=== PATIENT | female | born 1980 | race Hispanic/Latino ===

== ENCOUNTER 2020-08-07 20:29 | Emergency (ER) | payer OTHER ==
[2020-08-07] MEDS ORDERED: CYCLOBENZAPRINE HCL 10 MG TABLET ONE (22:57)
[2020-08-07] MEDS ORDERED: KETOROLAC TROMETHAMINE 60 MG/2 ML VIAL ONE (22:57)
== END 2020-08-08 00:21 | disposition home or self-care (01) ==
LOC: EDH 20:29
DX: S16.1XXA Strain of muscle, fascia and tendon at neck level, initial encounter (principal); S39.012A Strain of muscle, fascia and tendon of lower back, initial encounter; S50.11XA Contusion of right forearm, initial encounter; S70.01XA Contusion of right hip, initial encounter; S20.211A Contusion of right front wall of thorax, initial encounter; I10 Essential (primary) hypertension; Z88.8 Allergy status to other drugs, medicaments and biological substances; V49.49XA Driver injured in collision with other motor vehicles in traffic accident, initial encounter; Y93.89 Activity, other specified; Y92.89 Other specified places as the place of occurrence of the external cause; Y99.8 Other external cause status
CPT/HCPCS: 71045; 72040; 72100; 73090; 73502; 96372; 99284; J1885

== ENCOUNTER 2020-10-29 17:13 | Inpatient (IN) | payer OTHER ==
[~2020-10-29] VITALS: Ht 157.5 cm; Wt 97.4 kg
[2020-10-29 17:15] VITALS: BP 152/79
[2020-10-29] MEDS ORDERED: 0.9%NACL 1000ML 1,000 ML IV ONE (19:00)
[2020-10-29] MEDS ORDERED: INSULIN REGULAR, HUMAN 3ML 100 UNIT in 0.9%NACL 100ML 99 ML IV SCH ×2 (19:06)
[2020-10-29 19:19] VITALS: BP 175/105
[2020-10-29 19:29] LABS: BASOPHILS % (AUTO) 0.2 % (0.0-5.0); EOSINOPHILS % (AUTO) 0.1 % (0.0-8.0); HEMATOCRIT 46.2 % (36-48); LYMPHOCYTES % (AUTO) 16.2 % (21.0-51.0); MEAN CORPUSCULAR HEMOGLOBIN 29.1 pg (27.0-33.0); MEAN CORPUSCULAR HGB CONC 33.8 g/dL (32.0-36.0); MONOCYTES % (AUTO) 4.5 % (3.0-13.0); NEUTROPHILS % (AUTO) 77.8 % (40.0-77.0); PLATELET COUNT (AUTO) 380 K/uL (130-400); RED BLOOD CELL COUNT(AUTO) 5.37 MIL/uL (4.00-5.50); RED CELL DISTRIBUTION WIDTH 11.9 % (11.0-15.5); WHITE BLOOD COUNT (AUTO) 18.1 K/uL (4.8-10.8)
[2020-10-29] MEDS ORDERED: INSULIN HUMULIN R 100 UNIT/ML 3ML IV ONE (19:30)
[2020-10-29 19:38] LABS: ABG BASE EXCESS 1.9 mmol/L (-2.0-3.0); ABG HCO3 26.3 mmol/L (21.0-28.0); ABG OXYGEN SATURATION 97.2 % (95.0-99.0); ABG PCO2 40 mmHg (32-45)
[2020-10-29 19:44] LABS: BILIRUBIN,TOTAL 0.5 mg/dL (0.2-1.0); CREATININE 1.6 mg/dL (0.5-1.5); CRP QUANTITATIVE 5.5 mg/L (0.00-9.0); TOTAL PROTEIN, SERUM 7.8 g/dL (6.0-8.3)
[2020-10-29] MEDS ORDERED: ACETYLCYSTEINE 600 MG CAPSULE PO SCH (21:00)
[2020-10-29] MEDS ORDERED: 0.9%NACL 1000ML 1,000 ML IV SCH ×2 (21:00)
[2020-10-29] MEDS ORDERED: ONDANSETRON 4MG INJ IV PRN (21:00)
[2020-10-29] MEDS ORDERED: ERGOCALCIFEROL (VITAMIN D2) 50,000 UNIT CAPSULE PO ONE (21:00)
[2020-10-29] MEDS ORDERED: NITROGLYCERIN 0.4 MG SL TAB SL PRN (21:00)
[2020-10-29] MEDS ORDERED: ACETAMINOPHEN 325 MG TAB PO PRN (21:00)
[2020-10-29 21:47] LABS: CRP QUANTITATIVE 5.7 mg/L (0.00-9.0); MAGNESIUM 2.4 mg/dL (1.80-2.40)
[2020-10-29 21:51] LABS: HEMOGLOBIN A1C 11.5 % (4.0-6.0)
[2020-10-29] MEDS: HEPARIN 5,000 UNIT VIAL SQ SCH (22:41)
[2020-10-29] MEDS: 0.9%NACL 1000ML 1,000 ML IV SCH (22:58)
[2020-10-29] MEDS ORDERED: ERGOCALCIFEROL (VITAMIN D2) 50,000 UNIT CAPSULE ONE (23:02)
[2020-10-29 23:21] VITALS: BP 136/78
[2020-10-30] VITALS (8 sets, daily range): BP systolic 114–177; BP diastolic 63–94
[2020-10-30] MEDS ORDERED: LACTATED RINGERS 1000ML 1,000 ML IV SCH
[2020-10-30 01:36] LABS: POTASSIUM 3.5 mmol/L (3.5-5.1)
[2020-10-30] MEDS: DEXTROSE 5 %-0.45 % NACL 1,000 ML IV SCH ×2 (03:35→12:59)
[2020-10-30] MEDS: 0.9%NACL 1000ML 1,000 ML IV SCH ×3 (03:40→17:00)
[2020-10-30 08:38] LABS: BASOPHILS % (AUTO) 0.2 % (0.0-5.0); EOSINOPHILS % (AUTO) 1.1 % (0.0-8.0); HEMATOCRIT 44.5 % (36-48); MEAN CORPUSCULAR HEMOGLOBIN 28.4 pg (27.0-33.0); MEAN CORPUSCULAR HGB CONC 32.6 g/dL (32.0-36.0); MEAN CORPUSCULAR VOLUME 87.3 fL (79-99); MONOCYTES % (AUTO) 4.4 % (3.0-13.0); NEUTROPHILS % (AUTO) 59.2 % (40.0-77.0); PLATELET COUNT (AUTO) 313 K/uL (130-400); RED CELL DISTRIBUTION WIDTH 11.9 % (11.0-15.5); WHITE BLOOD COUNT (AUTO) 14.3 K/uL (4.8-10.8)
[2020-10-30 08:55] LABS: ALBUMIN 3.4 g/dL (3.5-5.0); BILIRUBIN,TOTAL 0.6 mg/dL (0.2-1.0); CREATININE 1.1 mg/dL (0.5-1.5); MAGNESIUM 2.2 mg/dL (1.80-2.40); POTASSIUM 3.5 mmol/L (3.5-5.1); TOTAL PROTEIN, SERUM 6.6 g/dL (6.0-8.3)
[2020-10-30] MEDS: HEPARIN 5,000 UNIT VIAL SQ SCH ×2 (08:57→21:42)
[2020-10-30] MEDS ORDERED: ASCORBIC ACID 500 MG TAB PO SCH (09:00)
[2020-10-30] MEDS ORDERED: ZINC SULFATE 220 CAPSULE PO SCH (09:00)
[2020-10-30] MEDS ORDERED: FAMOTIDINE 20MG VIAL IV SCH (09:00)
[2020-10-30] MEDS ORDERED: HYDR12.54 PO (09:01)
[2020-10-30] MEDS ORDERED: LABE100T5 PO (09:01)
[2020-10-30] MEDS ORDERED: LOSA100T58 PO (09:01)
[2020-10-30] MEDS ORDERED: KCL 20 MEQ ERTAB PO ONE (11:00)
[2020-10-30] MEDS: LOSARTAN 50 MG TABLET PO SCH ×2 (11:45→21:42)
[2020-10-30] MEDS: ZOSYN 3.375GM +NS 50ML IV SCH (17:18)
[2020-10-30] MEDS: 0.9%NACL 50ML IV SCH (17:18)
[2020-10-30 17:48] LABS: APPEARANCE,URINE Clear (CLEAR); BILIRUBIN,URINE Negative (NEGATIVE); COLOR,URINE Yellow (YELLOW); GLUCOSE, URINE (UA) TRACE mg/dL (NEGATIVE); KETONES,URINE Negative (NEGATIVE); LEUKOCYTE ESTERASE ,URINE Moderate (NEGATIVE); NITRATE,URINE Negative (NEGATIVE); OCCULT BLOOD,URINE Negative (NEGATIVE); PH,URINE 5.5 (5.0-8.0); PROTEIN,URINE Negative (NEGATIVE)
[2020-10-30 18:01] LABS: BACTERIA,URINE Few /HPF (None Seen); MUCUS,URINE Few LPF (None Seen); SQUAMOUS EPITHELIAL CELL,UR Moderate /HPF (0-2); YEAST,URINE BUDDING Few /HPF (None Seen)
[2020-10-30] MEDS ORDERED: INSULIN GLARGINE 100 UNITS/ML 10 ML VIAL SQ ONE (18:30)
[2020-10-30 20:02] LABS: POTASSIUM 3.4 mmol/L (3.5-5.1)
[2020-10-30] MEDS ORDERED: INSULIN HUMULIN R 100 UNIT/ML 3ML SQ SCH (21:00)
[2020-10-30] MEDS: INSULIN HUMULIN R 100 UNIT/ML 3ML SQ SCH (21:43)
[2020-10-31] VITALS (10 sets, daily range): BP systolic 100–157; BP diastolic 48–86
[2020-10-31] MEDS: 0.9%NACL 50ML IV SCH ×3 (00:55→17:46)
[2020-10-31] MEDS: ZOSYN 3.375GM +NS 50ML IV SCH ×3 (00:55→17:46)
[2020-10-31] MEDS: ACETAMINOPHEN 325 MG TAB PO PRN ×2 (01:24→21:47)
[2020-10-31] MEDS: 0.9%NACL 1000ML 1,000 ML IV SCH ×2 (02:54→11:06)
[2020-10-31 06:22] LABS: BASOPHILS % (AUTO) 0.2 % (0.0-5.0); EOSINOPHILS % (AUTO) 1.7 % (0.0-8.0); HEMATOCRIT 41.2 % (36-48); LYMPHOCYTES % (AUTO) 30.4 % (21.0-51.0); MEAN CORPUSCULAR HEMOGLOBIN 28.9 pg (27.0-33.0); MEAN CORPUSCULAR VOLUME 87.5 fL (79-99); MONOCYTES % (AUTO) 3.8 % (3.0-13.0); NEUTROPHILS % (AUTO) 63.1 % (40.0-77.0); PLATELET COUNT (AUTO) 238 K/uL (130-400); RED BLOOD CELL COUNT(AUTO) 4.71 MIL/uL (4.00-5.50); RED CELL DISTRIBUTION WIDTH 11.8 % (11.0-15.5); WHITE BLOOD COUNT (AUTO) 11.7 K/uL (4.8-10.8)
[2020-10-31 06:36] LABS: ALBUMIN 2.9 g/dL (3.5-5.0); BILIRUBIN,TOTAL 0.5 mg/dL (0.2-1.0); POTASSIUM 3.5 mmol/L (3.5-5.1); TOTAL PROTEIN, SERUM 5.8 g/dL (6.0-8.3)
[2020-10-31] MEDS: INSULIN GLARGINE 100 UNITS/ML 10 ML VIAL SQ SCH (08:04)
[2020-10-31] MEDS: LOSARTAN 50 MG TABLET PO SCH ×2 (08:05→21:46)
[2020-10-31] MEDS: LABETALOL HCL 100 MG TABLET PO SCH (08:05)
[2020-10-31] MEDS: INSULIN HUMULIN R 100 UNIT/ML 3ML SQ SCH ×7 (08:05→21:00)
[2020-10-31] MEDS: HEPARIN 5,000 UNIT VIAL SQ SCH ×2 (08:06→21:46)
[2020-11-01] VITALS (8 sets, daily range): BP systolic 133–154; BP diastolic 54–87
[2020-11-01] MEDS: ZOSYN 3.375GM +NS 50ML IV SCH ×3 (00:52→17:48)
[2020-11-01] MEDS: 0.9%NACL 50ML IV SCH ×3 (00:52→17:49)
[2020-11-01 07:22] LABS: BASOPHILS % (AUTO) 0.4 % (0.0-5.0); EOSINOPHILS % (AUTO) 2.9 % (0.0-8.0); HEMATOCRIT 38.3 % (36-48); LYMPHOCYTES % (AUTO) 33.2 % (21.0-51.0); MEAN CORPUSCULAR HEMOGLOBIN 28.8 pg (27.0-33.0); MEAN CORPUSCULAR HGB CONC 32.4 g/dL (32.0-36.0); MEAN CORPUSCULAR VOLUME 88.9 fL (79-99); MONOCYTES % (AUTO) 4.1 % (3.0-13.0); NEUTROPHILS % (AUTO) 58.7 % (40.0-77.0); PLATELET COUNT (AUTO) 190 K/uL (130-400); RED BLOOD CELL COUNT(AUTO) 4.31 MIL/uL (4.00-5.50); RED CELL DISTRIBUTION WIDTH 11.9 % (11.0-15.5); WHITE BLOOD COUNT (AUTO) 8.4 K/uL (4.8-10.8)
[2020-11-01 07:35] LABS: ALBUMIN 2.7 g/dL (3.5-5.0); BILIRUBIN,TOTAL 0.6 mg/dL (0.2-1.0); CREATININE 0.8 mg/dL (0.5-1.5); POTASSIUM 3.4 mmol/L (3.5-5.1); TOTAL PROTEIN, SERUM 5.5 g/dL (6.0-8.3)
[2020-11-01] MEDS: INSULIN GLARGINE 100 UNITS/ML 10 ML VIAL SQ SCH (08:39)
[2020-11-01] MEDS: LOSARTAN 50 MG TABLET PO SCH ×2 (08:40→20:37)
[2020-11-01] MEDS: INSULIN HUMULIN R 100 UNIT/ML 3ML SQ SCH ×7 (08:40→20:29)
[2020-11-01] MEDS: LABETALOL HCL 100 MG TABLET PO SCH (08:41)
[2020-11-01] MEDS: HEPARIN 5,000 UNIT VIAL SQ SCH ×2 (08:41→20:37)
[2020-11-01] MEDS ORDERED: LIDOCAINE HCL-MPF 1% 2ML VIAL IV PRN (14:00)
[2020-11-01] MEDS ORDERED: POTASSIUM CHLORIDE 10MEQ/100ML 100 ML IV PRN (14:00)
[2020-11-01] MEDS: KCL 20 MEQ ERTAB PO PRN ×2 (14:48→16:48)
[2020-11-01] MEDS ORDERED: KCL 20 MEQ ERTAB PO PRN (15:00)
[2020-11-01] MEDS ORDERED: POTASSIUM CHLORIDE 10% ELIXIR 20 MEQ/15 ML UDCUP PO PRN ×2 (15:00)
[2020-11-01] MEDS: KCL 20 MEQ ERTAB PO ONE ×2 (15:28→15:31)
[2020-11-01] MEDS ORDERED: ALBUTEROL 0.083% 2.5 MG/3 ML INH IH PRN (16:30)
[2020-11-02] MEDS ORDERED: FOLI1TAB85 PO (00:08)
[2020-11-02] MEDS ORDERED: DILT300C23 PO (00:08)
[2020-11-02] MEDS ORDERED: PANT40TA54 PO (00:08)
[2020-11-02] MEDS ORDERED: DOCU100P MC (00:08)
[2020-11-02] MEDS ORDERED: ATOR40TA69 PO (00:08)
[2020-11-02] MEDS ORDERED: ONDA-104 PO (00:08)
[2020-11-02] MEDS ORDERED: PRED20TA3 PO (00:08)
[2020-11-02] MEDS ORDERED: APIX2.5T PO (00:08)
[2020-11-02] MEDS ORDERED: CLON0.2T PO (00:08)
[2020-11-02] MEDS ORDERED: METO-391 PO (00:08)
[2020-11-02] MEDS: ZOSYN 3.375GM +NS 50ML IV SCH (00:37)
[2020-11-02] MEDS: 0.9%NACL 50ML IV SCH (00:37)
[2020-11-02 00:56] VITALS: BP 154/44
[2020-11-02] MEDS: ACETAMINOPHEN 325 MG TAB PO PRN (01:11)
[2020-11-02 01:30] VITALS: BP 148/52
[2020-11-02 04:00] VITALS: BP 151/87
[2020-11-02] MEDS: INSULIN HUMULIN R 100 UNIT/ML 3ML SQ SCH ×4 (06:38→12:42)
[2020-11-02] MEDS ORDERED: INSULIN GLARGINE 100 UNITS/ML 10 ML VIAL SQ SCH (07:00)
[2020-11-02 07:40] LABS: BASOPHILS % (AUTO) 0.2 % (0.0-5.0); EOSINOPHILS % (AUTO) 2.4 % (0.0-8.0); HEMATOCRIT 36.6 % (36-48); LYMPHOCYTES % (AUTO) 29.5 % (21.0-51.0); MEAN CORPUSCULAR HEMOGLOBIN 28.9 pg (27.0-33.0); MEAN CORPUSCULAR HGB CONC 33.1 g/dL (32.0-36.0); MEAN CORPUSCULAR VOLUME 87.4 fL (79-99); MONOCYTES % (AUTO) 4.4 % (3.0-13.0); NEUTROPHILS % (AUTO) 63.1 % (40.0-77.0); PLATELET COUNT (AUTO) 173 K/uL (130-400); RED BLOOD CELL COUNT(AUTO) 4.19 MIL/uL (4.00-5.50); RED CELL DISTRIBUTION WIDTH 11.7 % (11.0-15.5); WHITE BLOOD COUNT (AUTO) 10.1 K/uL (4.8-10.8)
[2020-11-02 07:52] LABS: CREATININE 0.8 mg/dL (0.5-1.5); POTASSIUM 3.6 mmol/L (3.5-5.1)
[2020-11-02] MEDS: LABETALOL HCL 100 MG TABLET PO SCH (10:46)
[2020-11-02] MEDS: LOSARTAN 50 MG TABLET PO SCH (10:46)
[2020-11-02] MEDS: HEPARIN 5,000 UNIT VIAL SQ SCH (10:49)
[2020-11-02] MEDS ORDERED: ZOSYN 3.375GM +NS 50ML IV SCH ×3 (11:00→21:00)
[2020-11-02] MEDS ORDERED: 0.9%NACL 50ML 50 ML IV SCH ×3 (11:00→21:00)
[2020-11-02] MEDS ORDERED: INSU100I35 SQ (11:46)
[2020-11-02] MEDS ORDERED: METF-444 PO (11:46)
[2020-11-02] MEDS ORDERED: GLIM2TAB30 PO (11:46)
== END 2020-11-02 13:45 | disposition home or self-care (01) | DRG 638 ==
LOC: EDH 17:13 → EDHIP 17:14 → UNDOADMIN 20:50 → EDHIP 20:50 → 3CH 11-02 01:23
PROVIDERS: ADMIT Internal Medicine; ATTEND Internal Medicine
DX: E11.00 Type 2 diabetes mellitus with hyperosmolarity without nonketotic hyperglycemic-hyperosmolar coma (NKHHC) (principal); N17.9 Acute kidney failure, unspecified; R65.10 Systemic inflammatory response syndrome (SIRS) of non-infectious origin without acute organ dysfunction; E86.0 Dehydration; E87.6 Hypokalemia; J20.8 Acute bronchitis due to other specified organisms; E66.9 Obesity, unspecified; I10 Essential (primary) hypertension; E11.65 Type 2 diabetes mellitus with hyperglycemia; Z20.822 Contact with and (suspected) exposure to COVID-19; T38.0X5A Adverse effect of glucocorticoids and synthetic analogues, initial encounter; Z68.37 Body mass index [BMI] 37.0-37.9, adult; Y92.89 Other specified places as the place of occurrence of the external cause; Z79.4 Long term (current) use of insulin; Z88.8 Allergy status to other drugs, medicaments and biological substances; Z90.710 Acquired absence of both cervix and uterus; Z90.49 Acquired absence of other specified parts of digestive tract; Z83.3 Family history of diabetes mellitus; Z82.49 Family history of ischemic heart disease and other diseases of the circulatory system
CPT/HCPCS: 36415; 36600; 70450; 71045; 80048; 80053; 81001; 81025; 82010; 82550; 82728; 82803; 82948; 83036; 83605; 83615; 83735; 83930; 84145; 84484; 85025; 85378; 86140; 87088; 87635; 87637; 87804; 93005; 94664; 99291; G0378; J1644; J1815; J2543; J7030

== ENCOUNTER 2021-10-25 20:36 | Emergency (ER) | payer MEDICAID, OTHER ==
[~2021-10-25] VITALS: Ht 160 cm; Wt 84.8 kg
[~2021-10-25 20:36] MED LIST: HYDR12.54 PO; LABE100T7 PO; LOSA100T58 PO
[2021-10-25] MEDS ORDERED: IBUPROFEN 600 MG TABLET PO ONE (22:00)
[2021-10-25] MEDS ORDERED: IBUPROFEN 600 MG TABLET ONE (22:03)
[2021-10-25] MEDS ORDERED: NAPR500T6 PO (22:09)
[2021-10-25 22:38] VITALS: BP 159/81
== END 2021-10-25 22:37 | disposition home or self-care (01) ==
LOC: EDH 20:36
DX: S62.637A Displaced fracture of distal phalanx of left little finger, initial encounter for closed fracture (principal); E11.9 Type 2 diabetes mellitus without complications; I10 Essential (primary) hypertension; Z88.1 Allergy status to other antibiotic agents; Z88.5 Allergy status to narcotic agent; Z90.49 Acquired absence of other specified parts of digestive tract; X58.XXXA Exposure to other specified factors, initial encounter; Y93.89 Activity, other specified; Y92.89 Other specified places as the place of occurrence of the external cause; Y99.8 Other external cause status
CPT/HCPCS: 29130; 73140

== ENCOUNTER 2024-03-25 12:57 | Emergency (ER) | payer OTHER ==
[~2024-03-25 12:57] MED LIST changes: -LOSA100T58 PO; +LOSA100T59 PO; +NAPR-1506 PO
--- NOTE | 2024-03-25 13:15 | ERN ---
General Stated Complaint: MEDICAL CLEARANCE Time Seen by MD: 13:12 Time Seen by Midlevel: 13:12 Source: patient History of Present Illness Initial Comments Patient is a 43-year-old female [facility]. On arrival patient was refusing to be seen. She does not want to be seen in his refusing care. She has no complaints at this time. Patient is not sectioned and [facility] does not have a warrant. Patient would like to sign out against medical advice. Allergies: Coded Allergies: No Known Drug Allergies (Verified Allergy, Unknown, 10/30/20) hydromorphone (Unverified Allergy, Unknown, ANXIETY, 11/01/20) metoclopramide (Unverified Allergy, Unknown, ANXIETY, 11/01/20) metronidazole (Unverified Allergy, Unknown, HIVES, 10/30/20) Home Meds Active Scripts Naproxen (Naproxen) 500 Mg Tablet.dr, 500 MG PO BIDPC, #15 TAB Prov:FREDI OWENS 10/25/21 Reported Medications Labetalol HCl (Labetalol HCl) 100 Mg Tablet, 100 MG PO AM, TAB 10/30/20 Losartan Potassium (Losartan Potassium) 100 Mg Tablet, 100 MG PO AM, TAB 10/30/20 Hydrochlorothiazide (Hydrochlorothiazide) 12.5 Mg Tablet, 12.5 MG PO AM, TAB 10/30/20 Past Medical History Past Medical History: Diabetes-Type II, Hypertension Past Surgical History: Hysterectomy, Cholecystectomy, Surgical History Other: COLON SURGERY ROS Dictation CONSTITUTIONAL: Negative except for HPI HEAD/FACE: Negative except for HPI EENT: Negative except for HPI RESPIRATORY: Negative except for HPI GASTROINTESTINAL/ABDOMINAL: Negative except for HPI GENITOURINARY: Negative except for HPI MUSCULOSKELETAL: Negative except for HPI INTEGUMENTARY: Negative except for HPI NEUROLOGICAL/PSYCH: Negative except for HPI HEMATOLOGIC/LYMPHATIC: Negative except for HPI All Systems Negative, Except as noted above. 13 point review of systems assessed and all negative except for above. Physical Exam Physical Exam Dictation PHYSICAL EXAM: GENERAL: alert,, awake oriented x 3 NEURO: Alert and oriented to person, follows commands MDM Patient is a 43-year-old female being [facility]. On arrival patient was refusing to be seen. She does not want to be seen in his refusing care. Patient is not sectioned and [employer] does not have a warrant. Patient would like to sign out against medical advice. Patient can not be medically cleared at this time however she was decided to sign out against medical advice. DX & DISP Disposition: AMA Departure Impression: Primary Impression: Left against medical advice Condition: Stable Referrals: SELF,REFERRAL (PCP) I have reviewed the case, and I agree with, Diagnosis and Plan I performed the substantive portion of the visit. I have reviewed and personally made and approve the management plan that is documented in the note by myself or the LUCIO. I acknowledge for responsibility for the patient's management plan. ROSENDO ESPINOSA Mar 25, 2024 13:15
--- NOTE | 2024-03-25 13:18 | NUR ---
PT STATES " I AM REFUSING TO BE SEEN ,I AM AN ADULT AND I DONT NEED SERVICES" PT ADVISED OF RISKS OF LEAVING AMA, AMA FORM SIGNED, ROSENDO MARQUEZ AT BEDSIDE EXPLAINED RISKS
== END 2024-03-25 13:21 | disposition left against medical advice (07) ==
LOC: EDH 12:57 → EEVIPCON 12:57 → EDH 13:21
DX: Z04.89 Encounter for examination and observation for other specified reasons (principal); E11.9 Type 2 diabetes mellitus without complications; I10 Essential (primary) hypertension; Z88.1 Allergy status to other antibiotic agents; Z88.5 Allergy status to narcotic agent; Z90.49 Acquired absence of other specified parts of digestive tract; Z90.710 Acquired absence of both cervix and uterus
CPT/HCPCS: 99283